=== PATIENT | male | born 2005 | race Caucasian/White ===

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

== ENCOUNTER 2024-03-17 15:51 | Emergency (ER) | payer OTHER ==
[~2024-03-17] VITALS: Ht 180.3 cm; Wt 97.7 kg
[2024-03-17 16:04] VITALS: BP 145/62; TEMP 97.7; O2SAT 99
== END 2024-03-17 18:57 | disposition left against medical advice (07) ==
LOC: M ED 15:51
DX: Z53.21 Procedure and treatment not carried out due to patient leaving prior to being seen by health care provider (principal)